=== PATIENT | male | born 1960 | race Two or more races ===

== ENCOUNTER 2024-06-05 16:00 | Inpatient (IN) | payer OTHER ==
[~2024-06-05] VITALS: Ht 182.9 cm; Wt 87.8 kg
--- NOTE | 2024-06-05 16:15 | ED.PDOC ---
History of Present Illness HPI Comments A 64 year old male brought in by EMS presents to the ED with a chief complaint of fever onset 1 week. Per EMS, patient has been experiencing fever for the past week, temporal temperature on scene was 105 F, upon ED arrival temperature was 101.1 F, blood glucose was 349. Patient states he has been experiencing increased fatigue and weakness. Has a past medical history of DM and HTN. Denies chest pain, shortness of breath, diarrhea, nausea, vomiting. No other symptoms or modifying factors present at this time. Chief Complaint: Fever Time Seen by MD: 16:03 Reviewed Notes: Medications, Allergies Information Source: Patient, Emergency Med Personnel Mode of Arrival: EMS Timing: Weeks Duration: Since onset Prehospital treatment: None Severity: Moderate Context: Recent: None History of: Diabetes Symptoms: Fever Associated Signs and Symptoms: Weakness Past Medical History PAST MEDICAL HISTORY: DM, HTN Surgical History: Unknown Family History Family History: Reviewed,noncontributory to illness, No family hx of Cancer, No family hx of DM, No family hx of Heart meme, No family hx of HTN, No family hx ofKidney meme, No family hx of Liver meme, No family hx of Lung meme, No family hx of Stroke Social History Smoker: Non-Smoker Alcohol: Denies ETOH Use Drugs: Denies Drug Use Lives In: Home Constitutional: Fatigue, Fever, Weakness EENTM: No Symptoms Reported Respiratory: No Symptoms Reported Cardiovascular: No Symptoms Reported Gastrointestinal: No Symptoms Reported Genitourinary: No Symptoms Reported Neurological: No Symptoms Reported Musculoskeletal: No Symptoms Reported Integumentary: No Symptoms Reported Allergic/Immunocompromised: others Hematologic/Lymphatic: No Symptoms Reported Endocrine: No Symptoms Reported Psychiatric: No symptoms Reported All Other Systems: Reviewed and Negative Physical Exam General Appearance: No Apparent Distress, Normal HEENT: Normal ENT Inspection, Pharynx Normal, TMs Normal Neck: Full Range of Motion, Non-Tender, Normal, Normal Inspection Respiratory: Chest Non-Tender, Lungs Clear, No Accessory Muscle Use, No Respiratory Distress, Normal Breath Sounds Cardiovascular: No Edema, No JVD, No Murmur, No Gallop, Normal Peripheral Pulses, Regular Rate/Rhythm Breast Exam: Deferred Gastrointestinal: No Organomegaly, Non Tender, No Pulsatile Mass, Normal Bowel Sounds, Soft Genitalia: Deferred Pelvic: Deferred Rectal: Deferred Extremities: No calf tenderness, Normal capillary refill, Normal inspection, Normal range of motion, Non-tender, No pedal edema Musculoskeletal : Apperance: Normal Neurologic: Alert, deputy sheriff chief II-XII nml as Tested, No Motor Deficits, Normal Affect, Normal Mood, No Sensory Deficits Cerebellar Function: Normal Reflexes: Normal Skin: Dry, Normal Color, Warm Lymphatic: No Adenopathy Was a procedure done? Was a procedure done?: No Fever Differential Dx Differential Diagnosis: Influenza, Pneumonia, Pyelonephritis, UTI, Viral Syndrome X-Ray, Labs, Meds, VS Vital Signs Date Time Temp Pulse Resp B/P (MAP) Pulse Ox O2 Delivery O2 Flow Rate FiO2 06/05/24 17:58 105 22 92 Room Air* 0 21 06/05/24 17:57 102.0 103 22 156/82 (106) 92 102.0 06/05/24 17:04 101.1 06/05/24 16:41 101.1 111 18 157/64 (95) 99 Lab Test 06/05/24 18:13 06/05/24 16:41 Range/Units Lactic Acid Level Pending 3.3 *H 0.4-2.0 mmol/L Troponin I High Sensitivity Pending 4 </=54 ng/L White Blood Count 9.8 4.4-10.8 10^3/uL Red Blood Count 5.19 4.5-5.90 10^6/uL Hemoglobin 15.8 13.5-17.5 g/dL Hematocrit 47.4 41.0-53.0 % Mean Corpuscular Volume 91.3 80.0-100.0 fL Mean Corpuscular Hemoglobin 30.5 28.0-32.0 pg Mean Corpuscular Hemoglobin Concent 33.4 32.0-36.0 g/dL Red Cell Distribution Width 13.6 11.8-14.3 % Platelet Count 81 L 140-450 10^3/uL Mean Platelet Volume 9.3 6.9-10.8 fL Neutrophils (%) (Auto) 37.0-80.0 % Lymphocytes (%) (Auto) 10.0-50.0 % Monocytes (%) (Auto) 0.0-12.0 % Basophils (%) (Auto) 0.0-2.0 % Neutrophils # (Auto) 1.6-8.6 10 ^3/uL Lymphocytes # (Auto) 0.4-5.4 10 ^3/uL Monocytes # (Auto) 0-1.3 10 ^3/uL Differential Total Cells Counted 100.0 100 Neutrophils % (Manual) 63 37.0-80.0 Band Neutrophils % (Manual) 18 Lymphocytes % (Manual) 6 L 10.0-50.0 Monocytes % (Manual) 10 0-12 Eosinophils % (Manual) 3 0-7 Basophils % (Manual) 0 0.0-2.0 Metamyelocytes % (manual) 0 Myelocytes % (Manual) 0 Promyelocytes % (Manual) 0 Blast Cells % (Manual) 0 Reactive Lymphocytes 0 Platelet Estimate Decreased Sodium Level 132 L 136-145 mmol/L Potassium Level 4.4 3.5-5.1 mmol/L Chloride Level 98 98-107 mmol/L Carbon Dioxide Level 21 20-31 mmol/L Anion Gap 13 5-15 Blood Urea Nitrogen 16 9-23 mg/dL Creatinine 0.92 0.700-1.30 mg/dL Glomerular Filtration Rate Calc 92 >90 mL/min BUN/Creatinine Ratio 17.4 10.0-20.0 Serum Glucose 370 H 74-106 mg/dL Calcium Level 9.3 8.7-10.4 mg/dL Total Bilirubin 0.8 0.2-1.0 mg/dL Aspartate Amino Transferase (AST) 84 H 13-40 U/L Alanine Aminotransferase (ALT) 129 H 7-40 U/L Alkaline Phosphatase 213 H 46-116 U/L Total Protein 6.6 5.7-8.2 g/dL Albumin 3.4 3.2-4.8 g/dL Current Medications Medications (Trade) Dose Ordered Sig/Radha Route Start Time Stop Time Status Last Admin Sodium Chloride 1,000 ml @ 1,000 mls/hr Q1H ONCE IV 06/05/24 16:15 06/05/24 17:14 DC 06/05/24 17:03 Ondansetron HCl (Zofran) 4 mg ONCE ONCE IV 06/05/24 16:15 06/05/24 16:16 DC 06/05/24 17:04 Cefepime HCl 50 ml @ 12.5 mls/hr ONCE ONCE IV 06/05/24 16:15 06/05/24 20:14 06/05/24 17:03 Acetaminophen (Tylenol Tablet) 650 mg ONCE ONCE PO 06/05/24 16:15 06/05/24 16:16 DC 06/05/24 17:04 [place] [id number] Ph: [phone] DIAGNOSTIC IMAGING Diagnostic Imaging Report : [id number] Signed PATIENT: JADE LOPEZ ACCT: [id number] UNIT: [id number] : 1960 LOC: ER ROOM / BED: / AGE / SEX: 64 / M ADM STATUS: REG ER SERVICE 38 ORDERING PHYSICIAN: KIARA HARDY MD PROCEDURE(s): CXRP - CHEST PORTABLE REASON: Fever, weakness ORDER NUMBER(s): [id number], ACCESSION NUMBER(s): [id number] EXAM: XY CHEST PORTABLE TECHNIQUE: Single frontal chest radiograph CLINICAL HISTORY: Fever, weakness COMPARISON: None Findings/Impression: Frontal chest radiograph demonstrates no acute osseous or superficial soft tissue abnormalities. The trachea is midline. The cardiac silhouette and mediastinum are within normal limits. No pneumothorax, pleural effusions, or consolidations. ATED BY: JENISE CERON DO DICTATED DATE/TIME: 06/05/241708 SIGNED BY: JENISE CERON DO SIGNED DATE/TIME: 06/05/241708 CC: Time of 1ST Reevaluation: 16:33 Reevaluation 1ST: Unchanged Patient Education/Counseling: Diagnosis, Treatment, Prognosis Family Education/Counseling: No Family Present Additional Information The following tests were ordered, and results were reviewed by me: CBC, CMP, LA W/REFLEX, TROP, TROP, TROP, UA, XY CHEST, BLOOD CULTURE I reviewed and agreed with the following test results read by other providers: XY CHEST Independent Historian: EMS I discussed treatment and results with medical personnel, patient Departure 1 Departure Time of Disposition: 19:09 (With infection of unclear source. We will empirically cover patient with antibiotics fluids antipyretics admit patient for further workup.) Impression: Primary Impression: Fever Qualified Codes: R50.9 - Fever, unspecified Additional Impressions: Weakness Metabolic encephalopathy Disposition: ADMITTED INPATIENT Admit to: Med Surg Condition: Serious Critical Care Note Critical Care Time?: Yes Critical care comment: Metabolic encephalopathy Authorized and Performed by: Kiara Hardy MD Total critical care time: Approximately 39 minutes Due to a high probability of clinically significant, life threatening deterioration, the patient required my highest level of preparedness to intervene emergently and I personally spent this critical care time directly and personally managing the patient. This critical care time included obtaining a history; examining the patient; pulse oximetry; ordering and review of studies; arranging urgent treatment with development of a management plan; evaluation of patient's response to treatment; frequent reassessment; and, discussions with other providers. This critical care time was performed to assess and manage the high probability of imminent, life-threatening deterioration that could result in multi-organ failure. It was exclusive of separately billable procedures and treating other patients and teaching time. Please see my other sections and the rest of the note for further information on patient assessment and treatment. Stability Stability form required: No I personally scribed for KIARA HARDY MD ([email or web address]) on 06/05/24 at 16:15. Electronically submitted by Shaneka Sandoval ([email or web address]). I personally scribed for KIARA HARDY MD ([email or web address]) on 06/05/24 at 16:15. Electronically submitted by Shaneka Sandoval ([email or web address]). I personally scribed for KIARA HARDY MD ([email or web address]) on 06/05/24 at 16:23. Electronically submitted by Shaneka Sandoval ([email or web address]). I personally scribed for KIARA HARDY MD ([email or web address]) on 06/05/24 at 16:54. Electronically submitted by Shaenka Sandoval ([email or web address]). I personally scribed for KIARA HARDY MD ([email or web address]) on 06/05/24 at 17:28. Electronically submitted by Shaneka Sandoval ([email or web address]). KIARA HARDY MD Jun 05, 2024 16:15
[2024-06-05] MEDS: CEFEPIME 2GM/50ML NS 50 ML IV ONE (17:03)
[2024-06-05] MEDS: SODIUM CHLORIDE 0.9% 1,000 ML IV ONE (17:03)
[2024-06-05] MEDS: ONDANSETRON HCL 4 MG/2 ML VIAL IV ONE (17:04)
[2024-06-05] MEDS: ACETAMINOPHEN 325 MG TAB PO ONE (17:04)
--- NOTE | 2024-06-05 17:11 | DVH ---
EXAM: XY CHEST PORTABLE TECHNIQUE: Single frontal chest radiograph CLINICAL HISTORY: Fever, weakness COMPARISON: None Findings/Impression: Frontal chest radiograph demonstrates no acute osseous or superficial soft tissue abnormalities. The trachea is midline. The cardiac silhouette and mediastinum are within normal limits. No pneumothorax, pleural effusions, or consolidations.
[2024-06-05 17:14] LABS: Albumin 3.4 g/dL (3.2-4.8); Anion Gap 13 (5-15); BUN/Creatinine Ratio 17.4 (10.0-20.0); Blood Urea Nitrogen 16 mg/dL (9-23); Calcium 9.3 mg/dL (8.7-10.4); Carbon Dioxide 21 mmol/L (20-31); Chloride 98 mmol/L (98-107); Potassium 4.4 mmol/L (3.5-5.1)
[2024-06-05 17:15] LABS: Bilirubin, Total 0.8 mg/dL (0.2-1.0); Total Protein 6.6 g/dL (5.7-8.2)
[2024-06-05 17:47] LABS: Alanine Aminotransferase 129 U/L (7-40); Alkaline Phosphatase 213 U/L (46-116); Aspartate Aminotransferase 84 U/L (13-40); Glucose 370 mg/dL (74-106); Sodium 132 mmol/L (136-145)
[2024-06-05 17:52] LABS: Hematocrit 47.4 % (41.0-53.0); Hemoglobin 15.8 g/dL (13.5-17.5); Mean Corpuscular Hemoglobin 30.5 pg (28.0-32.0); Mean Corpuscular Hgb Conc. 33.4 g/dL (32.0-36.0); Mean Corpuscular Volume 91.3 fL (80.0-100.0); Platelet Count (auto) 81 10^3/uL (140-450); Red Blood Cells 5.19 10^6/uL (4.5-5.90); Red Cell Distribution Width 13.6 % (11.8-14.3); White Blood Cell 9.8 10^3/uL (4.4-10.8)
[2024-06-05 17:56] LABS: Basophils % (manual) 0 (0.0-2.0); Blast Cells 0; Metamyelocytes % 0; Myelocytes % 0; Promyelocytes % 0; Reactive Lymphocytes 0
[2024-06-05 17:57] LABS: Lactic Acid w/Reflex 3.3 mmol/L (0.4-2.0)
[2024-06-05 17:58] VITALS: PULSE 105; RESP 22; O2SAT 92
[2024-06-05 18:17] LABS: Band Neutrophils % (manual) 18; Eosinophils % (manual) 3 (0-7); Lymphocytes % (manual) 6 (10.0-50.0); Monocytes % (manual) 10 (0-12); Platelet Estimate Decreased
[2024-06-05] MEDS ORDERED: DOCUSATE SOD 100 MG CAP PO PRN (19:45)
[2024-06-05] MEDS ORDERED: DEXTROSE (50%) 50ML SYRG IV PRN (19:45)
[2024-06-05] MEDS ORDERED: hydrALAZINE HCL 20 MG/ML VL IV PRN (19:45)
[2024-06-05] MEDS ORDERED: ONDANSETRON HCL 4 MG/2 ML VIAL IV PRN (19:45)
[2024-06-05 20:00] VITALS: PULSE 102; RESP 21; O2SAT 94
[2024-06-05] MEDS: ACCU-CHEK COMFORT CURVE STRIP VI SCH (20:45)
[2024-06-05] MEDS: SODIUM CHLORIDE 0.9% 1,000 ML IV SCH (21:00)
[2024-06-05] MEDS: PIPERACILLIN-TAZOB 3.375GM 100 ML IV SCH (22:00)
--- NOTE | 2024-06-05 22:19 | DVHHP2 ---
History of Present Illness Reason for Visit: Fever, unspecified History of Present Illness The patient is a 64-year-old male with past medical history of diabetes mellitus and hypertension who presented to [facility] ED with complaint of fever. Patient reports symptoms progressively get worse with weakness, increased fatigue, getting worse that prompted this visit. Patient was seen and evaluated in the ED, laboratory data shows WBC 9.8, platelets 99756, sodium 132, potassium 4.4, BUN 16, creatinine 0.92, GFR 92, lactic acid 2.6, AST 84, ALT 129, troponin four, blood pressure 157/64, heart rate 102, temperature 102.0 F, O2 saturation 92% on oxygen. Patient was started on IV antibiotic regimen Zosyn, Tylenol 650 mg p.o. x1, please see medication orders section in the computer. On my assessment, patient denied chest pain, no headache, no dizziness, no diaphoresis, currently on oxygen, no diarrhea, no nausea, no vomiting, no fever, no chills. No other modifying factor or other associated signs and symptoms noted. The patient was admitted to the hospital for further evaluation and medical management. Past Medical History DM, HTN Past Surgical History No past surgical history on file Family History Reviewed, noncontributory to the management of this case. Past Social History The patient lives at home, denies smoking, alcohol or illicit drugs abuse. Review of Systems Constitutional: Yes: Weakness, Other (Fatigue); No: Fever, Chills, Sweats, Malaise Eyes: No: Pain, Vision change, Conjunctivae inflammation, Eyelid inflammation, Other, Redness ENT: No: Ear pain, Ear discharge, Nose pain, Nose discharge, Nose congestion, Mouth pain, Mouth swelling, Throat pain, Throat swelling, Other Respiratory: No: Cough, Dry, Shortness of breath, SOB with excertion, Wheezing, Hemoptysis, Pleuritic Pain, Sputum, Wheezing, Other Cardiovascular: No: Chest Pain, Palpitations, Orthopnea, Paroxysmal Noc. Dyspnea, Edema, Lt Headedness, Other Gastrointestinal: No: Nausea, Vomiting, Abdominal Pain, Diarrhea, Constipation, Melena, Hematochezia, Other Genitourinary: No Dysuria, No Frequency, No Incontinence, No Hematuria, No Retention, No Other Musculoskeletal: No: other, neck pain, shoulder pain, arm pain, back pain, hand pain, leg pain, foot pain Skin: No: Rash, Lesions, Jaundice, Bruising, Other Neurological: No: Weakness, Numbness, Incoordination, Change in speech, Confusion, Seizures, Other Allergies: Coded Allergies: NO KNOWN ALLERGIES (Unverified , 06/05/24) Medications Current Medications Medications Dose Ordered Sig/Radha Route Start Time Stop Time Status Last Admin Dose Admin Piperacillin Sod/ Tazobactam Sod 100 ml @ 25 mls/hr Q8HR IV 06/05/24 22:00 Ibuprofen 600 mg Q6HP PRN PO 06/05/24 19:45 Diagnostic Test (Pha) 1 strip IQ4HR 06/05/24 20:00 Insulin Human Regular IQ4HR SC 06/05/24 20:00 Dextrose 50 ml UD PRN IV 06/05/24 19:45 Sodium Chloride 1,000 ml @ 60 mls/hr [id number] IV 06/05/24 19:45 Acetaminophen/ Hydrocodone Bitart 1 tab Q4HP PRN PO 06/05/24 19:45 Ondansetron HCl 4 mg Q4HP PRN IV 06/05/24 19:45 Docusate Sodium 100 mg BIDPRN PRN PO 06/05/24 19:45 Hydralazine HCl 10 mg Q6HP PRN IV 06/05/24 19:45 Exam Vital Signs Vital Signs Date Time Temp Pulse Resp B/P (MAP) Pulse Ox O2 Delivery O2 Flow Rate FiO2 06/05/24 19:52 102 21 108/65 (79) 94 06/05/24 17:58 Room Air* 0 21 06/05/24 17:57 102.0 102.0 General Appearance: Alert, Oriented X3, Cooperative, No acute distress HEENT: Atraumatic, PERRLA, EOMI, Mucous membr. moist/pink Respiratory: Clear to auscultation, Normal air movement Cardiovascular: Regular rate, Normal S1, Normal S2, No murmurs Abdominal: Normal bowel sounds, Soft, No tenderness, No hepatospenomegaly, No masses Extremities: No clubbing, No cyanosis, No edema, Normal pulses, No tenderness/swelling Skin: No rashes, No breakdown, No significant lesion Neuro: Normal speech, Normal tone, Sensation intact, Cranial nerves 3-12 NL, Reflexes 2+, Other (Generalized weakness) Psych/Mental Status: Mental status NL, Mood NL Labs/Xrays Labs Test 06/05/24 18:13 06/05/24 16:41 Range/Units Lactic Acid Level 2.6 *H 0.4-2.0 mmol/L Troponin I High Sensitivity 3 L </=54 ng/L White Blood Count 9.8 4.4-10.8 10^3/uL Red Blood Count 5.19 4.5-5.90 10^6/uL Hemoglobin 15.8 13.5-17.5 g/dL Hematocrit 47.4 41.0-53.0 % Mean Corpuscular Volume 91.3 80.0-100.0 fL Mean Corpuscular Hemoglobin 30.5 28.0-32.0 pg Mean Corpuscular Hemoglobin Concent 33.4 32.0-36.0 g/dL Red Cell Distribution Width 13.6 11.8-14.3 % Platelet Count 81 L 140-450 10^3/uL Mean Platelet Volume 9.3 6.9-10.8 fL Neutrophils (%) (Auto) 37.0-80.0 % Lymphocytes (%) (Auto) 10.0-50.0 % Monocytes (%) (Auto) 0.0-12.0 % Basophils (%) (Auto) 0.0-2.0 % Neutrophils # (Auto) 1.6-8.6 10 ^3/uL Lymphocytes # (Auto) 0.4-5.4 10 ^3/uL Monocytes # (Auto) 0-1.3 10 ^3/uL Differential Total Cells Counted 100.0 100 Neutrophils % (Manual) 63 37.0-80.0 Band Neutrophils % (Manual) 18 Lymphocytes % (Manual) 6 L 10.0-50.0 Monocytes % (Manual) 10 0-12 Eosinophils % (Manual) 3 0-7 Basophils % (Manual) 0 0.0-2.0 Metamyelocytes % (manual) 0 Myelocytes % (Manual) 0 Promyelocytes % (Manual) 0 Blast Cells % (Manual) 0 Reactive Lymphocytes 0 Platelet Estimate Decreased Sodium Level 132 L 136-145 mmol/L Potassium Level 4.4 3.5-5.1 mmol/L Chloride Level 98 98-107 mmol/L Carbon Dioxide Level 21 20-31 mmol/L Anion Gap 13 5-15 Blood Urea Nitrogen 16 9-23 mg/dL Creatinine 0.92 0.700-1.30 mg/dL Glomerular Filtration Rate Calc 92 >90 mL/min BUN/Creatinine Ratio 17.4 10.0-20.0 Serum Glucose 370 H 74-106 mg/dL Calcium Level 9.3 8.7-10.4 mg/dL Total Bilirubin 0.8 0.2-1.0 mg/dL Aspartate Amino Transferase (AST) 84 H 13-40 U/L Alanine Aminotransferase (ALT) 129 H 7-40 U/L Alkaline Phosphatase 213 H 46-116 U/L Total Protein 6.6 5.7-8.2 g/dL Albumin 3.4 3.2-4.8 g/dL PATIENT: JADE LOPEZ ACCT: [id number] UNIT: [id number] : 1960 LOC: ER ROOM / BED: / AGE / SEX: 64 / M ADM STATUS: REG ER SERVICE [id number] ORDERING PHYSICIAN: KIARA HARDY MD PROCEDURE(s): CXRP - CHEST PORTABLE REASON: Fever, weakness ORDER NUMBER(s): [id number], ACCESSION NUMBER(s): [id number] EXAM: XY CHEST PORTABLE TECHNIQUE: Single frontal chest radiograph CLINICAL HISTORY: Fever, weakness COMPARISON: None Findings/Impression: Frontal chest radiograph demonstrates no acute osseous or superficial soft tissue abnormalities. The trachea is midline. The cardiac silhouette and mediastinum are within normal limits. No pneumothorax, pleural effusions, or consolidations. Assessment/Plan Assessment/Plan Fever, unspecified Generalized weakness Thrombocytopenia Elevated liver enzymes Metabolic encephalopathy Diabetes mellitus with hyperglycemia Plan 1. Admit to telemetry unit 2. Breathing treatment 3. Pain control management 4. IV antibiotic management 5. Management of fluids and electrolytes 6. Consultation for hospitalist 7. Diagnostic test chest x-ray 8. DVT prophylaxis-on SCDs 9. Repeat labs CBC, CMP in a.m. 10. Home medication reviewed and reconciled 11. Continue with current medical management 12. Treatment plan discussed with patient and RN. Patient verbalized understanding. Plan discussed with: Patient, Other (RN) My Orders Orders - JESS RAMON DNP Procedure Category Date Status Time Piperacillin-Tazob PHA 06/05/24 In Process 3.375gm (Zosyn 3.375g 22:00 Consistent DIET 06/06/24 Transmitted Carb(Ccho)Diabetes Breakfast Ibuprofen Tablet PHA 06/05/24 In Process (Motrin Tablet) 19:45 Glucose Blood PHA 06/05/24 In Process (Accu-Chek Comfort 20:00 Insulin R (Human) PHA 06/05/24 In Process (Insulin R) 20:00 Dextrose 50% Syringe PHA 06/05/24 In Process 19:45 Allergies PATSY 06/05/24 In Process 19:35 Code Status CODE 06/05/24 Transmitted 19:35 Sodium Chloride 0.9% PHA 06/05/24 In Process 19:45 Oxygen Per Hour RT 06/05/24 Transmitted 19:35 Hydrocodone-Acet PHA 06/05/24 In Process 5/325mg Tab ([place] 19:45 Ondansetron Hcl PHA 06/05/24 In Process (Zofran) 19:45 Docusate Sodium PHA 06/05/24 In Process Capsule (Colace 19:45 Complete Blood Count LAB 06/06/24 Verified 04:00 Comprehensive LAB 06/06/24 Verified Metabolic Panel 04:00 Condition: Serious PATSY 06/05/24 In Process 19:35 Bedrest With Bathroom PATSY 06/05/24 In Process Privileg 19:35 Sequential PATSY 06/05/24 In Process Compression Device Hydralazine Injection PHA 06/05/24 In Process (Apresoline Inject 19:45 Lactic Acid W/ Reflex LAB 06/06/24 Verified Order 02:00 Admit ADMIT 06/05/24 Verified 22:17 Nitroglycerin [facility] 06/05/24 Verified Sublingual (Ntrostat 22:30 Morphine Sulfate PHA 06/05/24 Verified Injection 22:30 Notify Of Changes [facility] 06/05/24 Verified From Base 22:17 Salesman/Owner For [facility] 06/05/24 Verified 24 Hours 22:17 Emergency Dysrhythmia [facility] 06/05/24 Verified Protocol 22:17 Rhythm Strips Once [facility] 06/05/24 Verified Every Shift 22:17 Oxygen By Nasal RT 06/05/24 Verified Cannula 22:17 Problem List: (1) Fever, unspecified (2) Elevated liver enzymes (3) Metabolic encephalopathy (4) Thrombocytopenia (5) Generalized weakness (6) Diabetes mellitus with hyperglycemia Date of Service: Jun 05, 2024 Billing Provider: JESS RAMON DNP Common Visit Codes: 23549-ZOWHJBV INP/OBS CARE (HIGH) JESS RAMON DNP Jun 05, 2024 22:18
[2024-06-05] MEDS ORDERED: MORPHINE SULFATE INJ 2 MG/ml SYRG IV PRN (22:30)
[2024-06-05] MEDS ORDERED: NITROGLYCERIN 0.4 MG SL TAB SL PRN (22:30)
[2024-06-05] MEDS: VANCOMYCIN 1GM/250ML KIT 200 ML IV ONE (23:32)
[2024-06-05 23:35] LABS: Urine Bacteria None Seen /hpf (None Seen)
[2024-06-05 23:49] LABS: Urine Blood TRACE /uL (Negative); Urine Clarity Clear (Clear); Urine Color Light-Yellow (Yellow); Urine Protein, UAD TRACE (Negative); Urine Specific Gravity 1.032 (1.001-1.035); Urine Urobilinogen Normal (Negative); Urine WBC 1 /hpf (0 - 3); Urine pH 5.5 (5.0-9.0)
[2024-06-05] MEDS: InsuLIN REG 1unit/0.01ml Soln (100units/ml) SC SCH (23:49)
[2024-06-06 00:03] LABS: COVID19 ANTIGEN SOFIA FIA NEGATIVE (NEGATIVE)
[2024-06-06 00:04] LABS: Rapid Influenza A Negative (Negative); Rapid Influenza B Negative (Negative)
[2024-06-06] MEDS: HYDROcodone-ACET 5/325MG TAB PO PRN (00:36)
[2024-06-06 02:07] LABS: Hemoglobin 13.5 g/dL (13.5-17.5); White Blood Cell 11.2 10^3/uL (4.4-10.8)
[2024-06-06 02:08] LABS: Hematocrit 39.5 % (41.0-53.0); Mean Corpuscular Hemoglobin 30.2 pg (28.0-32.0); Mean Corpuscular Hgb Conc. 34.1 g/dL (32.0-36.0); Mean Corpuscular Volume 88.5 fL (80.0-100.0); Red Blood Cells 4.47 10^6/uL (4.5-5.90); Red Cell Distribution Width 13.3 % (11.8-14.3)
[2024-06-06 02:22] LABS: Platelet Count (auto) 60 10^3/uL (140-450)
[2024-06-06 02:23] LABS: Basophils % (manual) 0 (0.0-2.0); Blast Cells 0; Eosinophils % (manual) 0 (0-7); Metamyelocytes % 0; Promyelocytes % 0; Reactive Lymphocytes 0
[2024-06-06 02:24] LABS: Anion Gap 8 (5-15); Blood Urea Nitrogen 18 mg/dL (9-23); Carbon Dioxide 23 mmol/L (20-31); Chloride 100 mmol/L (98-107); Potassium 3.7 mmol/L (3.5-5.1)
[2024-06-06 02:25] LABS: Bilirubin, Total 0.7 mg/dL (0.2-1.0)
[2024-06-06 02:26] LABS: Alanine Aminotransferase 112 U/L (7-40); Albumin 2.9 g/dL (3.2-4.8); Alkaline Phosphatase 188 U/L (46-116); Aspartate Aminotransferase 101 U/L (13-40); Calcium 8.1 mg/dL (8.7-10.4); Glucose 357 mg/dL (74-106); Sodium 131 mmol/L (136-145); Total Protein 5.4 g/dL (5.7-8.2)
[2024-06-06 02:59] LABS: Band Neutrophils % (manual) 32; Lymphocytes % (manual) 9 (10.0-50.0); Monocytes % (manual) 4 (0-12); Myelocytes % 1
[2024-06-06] MEDS: IBUPROFEN 600 MG TAB PO PRN (03:23)
[2024-06-06 03:50] LABS: Platelet Estimate Markedly Decreased
[2024-06-06 05:07] VITALS: PULSE 93; RESP 18; O2SAT 97
[2024-06-06 09:00] VITALS: PULSE 64; RESP 12; O2SAT 98
[2024-06-06] MEDS: INSULIN LANTUS (GLARGINE) 1 /0.01ml (100units/ml) SC SCH ×2 (12:12→22:04)
[2024-06-06] MEDS ORDERED: VANCOMYCIN 1GM/250ML KIT 250 ML IV ONE (16:00)
[2024-06-06] MEDS ORDERED: VANCOMYCIN PER PHARMACY 0 MG IV SCH (16:00)
--- NOTE | 2024-06-06 16:00 | DVHPN2 ---
Subjective 64 year old male DM2, HTN, h/o remote left hip infection 40 years ago, left hip is fused now, came for fever and chills He has Temp: 100.1 Blood Cx + x 2 Changes from previous H/P or p: Changes General: Chills Eyes: No Pain, No Vision change, No Conjunctivae inflammation, No Eyelid inflammation, No Other, No Redness ENT: No Ear pain, No Ear discharge, No Nose pain, No Nose discharge, No Nose congestion, No Mouth pain, No Mouth swelling, No Throat pain, No Throat swelling, No Other Cardiovascular: No Chest Pain, No Palpitations, No Orthopnea, No Paroxysmal Noc. Dyspnea, No Edema, No Lt Headedness, No Other Respiratory: No Cough, No Dry, No Shortness of breath, No SOB with excertion, No Wheezing, No Hemoptysis, No Pleuritic Pain, No Sputum, No Other Gastrointestinal: No Nausea, No Vomiting, No Abdominal Pain, No Diarrhea, No Constipation, No Melena, No Hematochezia, No Other Genitourinary: No Dysuria, No Frequency, No Incontinence, No Hematuria, No Retention, No Other Musculoskeletal: No other, No neck pain, No shoulder pain, No arm pain, No back pain, No hand pain, No leg pain, No foot pain Skin: No Rash, No Lesions, No Jaundice, No Bruising, No Other Objective Vitals Vital Signs Date Time Temp Pulse Resp B/P (MAP) Pulse Ox O2 Delivery O2 Flow Rate FiO2 06/06/24 05:11 100.0 91 18 116/62 (80) 98 100.0 06/06/24 05:07 Nasal Cannula* 1 24 Intake/Output Intake and Output 06/06/24 07:00 Intake Total 180 ml Balance 180 ml Intake IV Total 180 ml General Appearance: Alert, Oriented X3, Cooperative, No acute distress Lungs: Clear to auscultation, Normal air movement Cardiovascular: Regular rate, Normal S1, Normal S2 Abdomen: Normal bowel sounds, Soft, No tenderness Extremities: No edema Medications Current Medications Medications Dose Ordered Sig/Radha Route Start Time Stop Time Status Last Admin Dose Admin Piperacillin Sod/ Tazobactam Sod 100 ml @ 25 mls/hr Q8HR IV 06/05/24 22:00 06/06/24 06:26 25 MLS/HR Ibuprofen 600 mg Q6HP PRN PO 06/05/24 19:45 06/06/24 03:23 600 MG Diagnostic Test (Pha) 1 strip IQ4HR 06/05/24 20:00 06/06/24 12:06 1 STRIP Insulin Human Regular IQ4HR SC 06/05/24 20:00 06/06/24 12:18 15 UNITS Dextrose 50 ml UD PRN IV 06/05/24 19:45 Sodium Chloride 1,000 ml @ 60 mls/hr [id number] IV 06/05/24 19:45 06/05/24 21:00 60 MLS/HR Acetaminophen/ Hydrocodone Bitart 1 tab Q4HP PRN PO 06/05/24 19:45 06/06/24 00:36 1 TAB Ondansetron HCl 4 mg Q4HP PRN IV 06/05/24 19:45 Docusate Sodium 100 mg BIDPRN PRN PO 06/05/24 19:45 Hydralazine HCl 10 mg Q6HP PRN IV 06/05/24 19:45 Nitroglycerin 0.4 mg Q5MINP PRN SL 06/05/24 22:30 Morphine Sulfate 2 mg Q30M PRN IV 06/05/24 22:30 Insulin Glargine BID@1000,2200 SC 06/06/24 10:00 Laboratory Results Laboratory Tests 06/06/24 01:57 Chemistry Test 06/05/24 16:41 06/06/24 01:57 Albumin 3.4 g/dL (3.2-4.8) 2.9 g/dL (3.2-4.8) L Calcium Level 9.3 mg/dL (8.7-10.4) 8.1 mg/dL (8.7-10.4) L Total Protein 6.6 g/dL (5.7-8.2) 5.4 g/dL (5.7-8.2) L LFT Test 06/05/24 16:41 06/06/24 01:57 Alanine Aminotransferase (ALT) 129 U/L (7-40) H 112 U/L (7-40) H Alkaline Phosphatase 213 U/L (46-116) H 188 U/L (46-116) H Aspartate Amino Transferase (AST) 84 U/L (13-40) H 101 U/L (13-40) H Total Bilirubin 0.8 mg/dL (0.2-1.0) 0.7 mg/dL (0.2-1.0) Urinalysis Test 06/05/24 22:13 Urine Color Light-yellow (Yellow) Urine Clarity Clear (Clear) Urine pH 5.5 (5.0-9.0) Urine Specific [place] 1.032 (1.001-1.035) Urine Protein Trace (Negative) H Urine Ketones 2+ (Negative) H Urine Blood Trace /uL (Negative) H Urine Nitrite Negative (Negative) Urine Bilirubin Negative (Negative) Urine Urobilinogen Normal mg/dL (Negative) Urine Leukocyte Esterase Negative /uL (Negative) Urine RBC 3 /hpf (0 - 3) Urine WBC 1 /hpf (0 - 3) Urine Squamous Epithelial Cells None seen /hpf (<5) Urine Bacteria None seen /hpf (None Seen) Urine Glucose 4+ mg/dL (Normal) H Microbiology Microbiology Date/Time Source Procedure Growth Status 06/05/24 16:41 Blood Blood Culture - Preliminary Resulted Assessment/Plan Assessment/Plan Fever Bacteremia G+ cocci in clusters Sepsis Uncontrolled DM, insulin dependent Elevated liver function Thrombocytopenia due to sepsis Protein malnutrition HTN Left hip pain, 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
--- NOTE | 2024-06-06 16:45 | DVH ---
Exam: CT CT L HIP WITH OUT CONTRAST, CT CT AB PEL WO CON-NO ORAL OR IV History: fever Comparison Study: None available TECHNIQUE: Multidetector CT of the abdomen and pelvis was performed from lung bases to pubic symphysi s. Imaging was performed without IV contrast. Axial, coronal, and sagittal multiplanar reformats were obtained from the axial data set by the technologist. RADIATION DOSE: DLP 692.97 mGy.cm; CTDI vol 11.[address]: CTDI volume is 11.62 mGy. Dose-length product is 390.72 mGy*cm Findings: Limited evaluation given noncontrast technique. Lungs: Intralobular septal thickening. Heart: The visualized heart is unremarkable. No cardiomegaly or pericardial effusion. Liver: Unremarkable. Gallbladder: Contracted gallbladder, but otherwise unremarkable. Spleen: Unremarkable Pancreas: Unremarkable Adrenals: Unremarkable Kidneys: Unremarkable GI tract: Unremarkable : The urinary bladder is decompressed via Leon catheter. Vasculature: Unremarkable Lymphadenopathy: Absent Peritoneum: No ascites Musculoskeletal: Mild to moderate multilevel degenerative changes of the thoracolumbar spine. Heterot opic ossification of the left femoral head with fusion to the acetabulum. Soft tissues: Unremarkable Impression: 1. No acute abdominopelvic abnormalities. 2. Contracted gallbladder. 3. Intralobular septal thickening. May be due to interstitial pneumonia versus pulmonary edema. 4. Marked degenerative changes of the left hip with femoroacetabular fusion.
--- NOTE | 2024-06-06 17:20 | DVHSR ---
APPROVED REPORT EXAM: Two-dimensional and M-mode echocardiogram with Doppler and color Doppler. Blood Pressure: 116/62 mmHg INDICATION Bacteremia RISK FACTORS Height: 6'0", Weight: 180 DIMENSIONS LVDd4.6 (3.8-5.7cm)LA (2D)3.8 (1.9-4.0cm)Aortic Root3.5 (2.0-3.7cm) LVDs3.1 (2.5-4.0cm)LA (MM) (1.9-4.0cm)Aortic Cusp Exc1.8 (1.5-2.0cm) EF (%) 62.0 (55-70%)Rt. Atrium3.5 (1.9-4.0cm)Asc. Aorta cm IVSd1.2 (0.7-1.1cm)RV (D) (1.8-2.4cm) PWd1.2 (0.7-1.1cm) Mitral Valve MitralMitral Stenosis E wave1.25m/sMV Mean GR.mmHg A wave0.85m/sMV Peak GR.mmHg E/A ratio1.52D MVAcm2 DECEL [id number] 1/2 Timems Aortic Valve Aortic ValveAortic Stenosis V11.16m/Butch Mean GR.4mmHg V21.28m/Butch Peak GR.7mmHg LVOT Diameter2.0 (1.8-2.4cm)Doppler AVA2.85cm2 Pulmonic Valve V21.03m/s Other Information Technically limited study due to body habitus, patient lying flat. Conclusion LV EJECTION FRACTION IS 65 % NORMAL VALVES NO EFFUSION NORMAL RV FUNCTION
[2024-06-06] MEDS: INSULIN LANTUS (GLARGINE) 1 /0.01ml (100units/ml) SC ONE (17:41)
[2024-06-06] MEDS: ACCU-CHEK COMFORT CURVE STRIP VI SCH (17:43)
[2024-06-06] MEDS: InsuLIN REG 1unit/0.01ml Soln (100units/ml) SC SCH (17:43)
[2024-06-06 19:00] VITALS: BP 115/64; PULSE 88; RESP 18; TEMP 99.4; O2SAT 90
[2024-06-06] MEDS: VANCOMYCIN 1.25GM/250ML 250 ML IV SCH (20:20)
[2024-06-06] MEDS: ACETAMINOPHEN 325 MG TAB PO PRN (20:58)
[2024-06-06 21:00] VITALS: BP 114/65; PULSE 89; RESP 18; TEMP 100.4; O2SAT 91
[2024-06-06] MEDS ORDERED: METH-1181 PO (23:07)
[2024-06-06] MEDS ORDERED: NAP500T PO (23:07)
[2024-06-06] MEDS ORDERED: METH-1214 PO (23:07)
[2024-06-06] MEDS ORDERED: LISI40TA16 PO (23:09)
[2024-06-06] MEDS ORDERED: SEMA2INJ3 SC (23:09)
[2024-06-06] MEDS ORDERED: BUPR-60 PO (23:09)
[2024-06-07] VITALS (8 sets, daily range): BP systolic 112–131; BP diastolic 63–71; PULSE 78–94; RESP 16–20; TEMP 97.9–101.4; O2SAT 91–94
[2024-06-07 07:36] LABS: Anion Gap 6 (5-15); Blood Urea Nitrogen 16 mg/dL (9-23); Carbon Dioxide 25 mmol/L (20-31); Chloride 104 mmol/L (98-107); Cholesterol 74 mg/dL (< 200); LDL Cholesterol 20 mg/dL (< 100); Magnesium 2.1 mg/dL (1.6-2.6)
[2024-06-07 07:37] LABS: Bilirubin, Total 0.7 mg/dL (0.2-1.0); Hemoglobin 13.1 g/dL (13.5-17.5); Mean Corpuscular Volume 88.8 fL (80.0-100.0); White Blood Cell 13.5 10^3/uL (4.4-10.8)
[2024-06-07 07:38] LABS: Hematocrit 38.5 % (41.0-53.0); Mean Corpuscular Hemoglobin 30.3 pg (28.0-32.0); Mean Corpuscular Hgb Conc. 34.1 g/dL (32.0-36.0); Platelet Count (auto) 53 10^3/uL (140-450); Red Blood Cells 4.34 10^6/uL (4.5-5.90); Red Cell Distribution Width 13.5 % (11.8-14.3)
[2024-06-07 07:39] LABS: Alanine Aminotransferase 91 U/L (7-40); Albumin 2.4 g/dL (3.2-4.8); Alkaline Phosphatase 160 U/L (46-116); Aspartate Aminotransferase 117 U/L (13-40); Calcium 7.8 mg/dL (8.7-10.4); Glucose 222 mg/dL (74-106); HDL Cholesterol < 5 mg/dL (40-59); Potassium 3.5 mmol/L (3.5-5.1); Sodium 135 mmol/L (136-145); Total Protein 5.1 g/dL (5.7-8.2); Triglycerides 199 mg/dL (< 150)
[2024-06-07 07:40] LABS: INR 1.08 (0.9-1.15); Partial Thromboplastin Time 29.1 SEC (24.5-34.5); Prothrombin Time 11.4 sec (9.3-11.8)
[2024-06-07 07:43] LABS: Basophils % (manual) 0 (0.0-2.0); Blast Cells 0; Metamyelocytes % 0; Myelocytes % 0; Promyelocytes % 0; Reactive Lymphocytes 0
[2024-06-07 09:23] LABS: Hepatitis A Ab IgM Negative; Hepatitis B Core IgM Negative (Negative); Hepatitis B Surface Antigen Negative (Negative); Hepatitis C Antibody Negative (Negative)
[2024-06-07 12:37] LABS: Band Neutrophils % (manual) 9; Eosinophils % (manual) 1 (0-7); Lymphocytes % (manual) 10 (10.0-50.0); Monocytes % (manual) 7 (0-12); Platelet Estimate Decreased
--- NOTE | 2024-06-07 16:51 | DVHPN2 ---
Subjective Still c/o fever and pain in left hip Changes from previous H/P or p: Changes General: Chills Eyes: No Pain, No Vision change, No Conjunctivae inflammation, No Eyelid inflammation, No Other, No Redness ENT: No Ear pain, No Ear discharge, No Nose pain, No Nose discharge, No Nose congestion, No Mouth pain, No Mouth swelling, No Throat pain, No Throat swelling, No Other Cardiovascular: No Chest Pain, No Palpitations, No Orthopnea, No Paroxysmal Noc. Dyspnea, No Edema, No Lt Headedness, No Other Respiratory: No Cough, No Dry, No Shortness of breath, No SOB with excertion, No Wheezing, No Hemoptysis, No Pleuritic Pain, No Sputum, No Other Gastrointestinal: No Nausea, No Vomiting, No Abdominal Pain, No Diarrhea, No Constipation, No Melena, No Hematochezia, No Other Genitourinary: No Dysuria, No Frequency, No Incontinence, No Hematuria, No Retention, No Other Musculoskeletal: No other, No neck pain, No shoulder pain, No arm pain, No back pain, No hand pain, No leg pain, No foot pain Skin: No Rash, No Lesions, No Jaundice, No Bruising, No Other Objective Vitals Vital Signs Date Time Temp Pulse Resp B/P (MAP) Pulse Ox O2 Delivery O2 Flow Rate FiO2 06/07/24 12:36 98.1 79 18 112/63 (79) 93 98.1 06/07/24 08:00 Nasal Cannula* 2 28 Intake/Output Intake and Output 06/07/24 07:00 Intake Total 800 ml Output Total 2100 ml Balance -1300 ml Intake Oral 700 ml IV Total 100 ml Output Urine Total 2100 ml General Appearance: Alert, Oriented X3, Cooperative, No acute distress Lungs: Clear to auscultation, Normal air movement Cardiovascular: Regular rate, Normal S1, Normal S2 Abdomen: Normal bowel sounds, Soft, No tenderness Extremities: No edema Medications Current Medications Medications Dose Ordered Sig/Radha Route Start Time Stop Time Status Last Admin Dose Admin Piperacillin Sod/ Tazobactam Sod 100 ml @ 25 mls/hr Q8HR IV 06/05/24 22:00 06/07/24 15:53 25 MLS/HR Dextrose 50 ml UD PRN IV 06/05/24 19:45 Sodium Chloride 1,000 ml @ 60 mls/hr [id number] IV 06/05/24 19:45 06/05/24 21:00 60 MLS/HR Acetaminophen/ Hydrocodone Bitart 1 tab Q4HP PRN PO 06/05/24 19:45 06/07/24 16:05 1 TAB Ondansetron HCl 4 mg Q4HP PRN IV 06/05/24 19:45 Docusate Sodium 100 mg BIDPRN PRN PO 06/05/24 19:45 Hydralazine HCl 10 mg Q6HP PRN IV 06/05/24 19:45 Nitroglycerin 0.4 mg Q5MINP PRN SL 06/05/24 22:30 Morphine Sulfate 2 mg Q30M PRN IV 06/05/24 22:30 Insulin Glargine 20 units BID@1000,2200 SC 06/06/24 22:00 06/07/24 10:40 20 UNITS Vancomycin HCl 0 ml @ 0 mls/hr UD IV 06/06/24 16:00 Diagnostic Test (Pha) 1 strip ACHS 06/06/24 17:00 06/07/24 10:31 1 STRIP Insulin Human Regular ACHS SC 06/06/24 17:00 06/07/24 10:41 9 UNITS Acetaminophen 650 mg Q6HP PRN PO 06/06/24 16:00 06/07/24 05:06 650 MG Vancomycin HCl 250 ml @ 200 mls/hr Q18H IV 06/06/24 18:00 06/07/24 11:26 200 MLS/HR Laboratory Results Laboratory Tests 06/07/24 06:07 Chemistry Test 06/07/24 06:07 Albumin 2.4 g/dL (3.2-4.8) L Calcium Level 7.8 mg/dL (8.7-10.4) L Magnesium Level 2.1 mg/dL (1.6-2.6) Total Protein 5.1 g/dL (5.7-8.2) L Coagulation Test 06/07/24 06:07 Prothrombin Time 11.4 sec (9.3-11.8) Prothrombin Time INR 1.08 (0.9-1.15) Activated Partial Thromboplast Time 29.1 SEC (24.5-34.5) Lipid panel Test 06/07/24 06:07 Cholesterol Level 74 mg/dL (< 200) HDL Cholesterol < 5 mg/dL (40-59) L Triglycerides Level 199 mg/dL (< 150) H LFT Test 06/07/24 06:07 Alanine Aminotransferase (ALT) 91 U/L (7-40) H Alkaline Phosphatase 160 U/L (46-116) H Aspartate Amino Transferase (AST) 117 U/L (13-40) H Total Bilirubin 0.7 mg/dL (0.2-1.0) HgA1c, TSH Test 06/07/24 06:07 Hemoglobin A1c 11.7 % A1C (<5.7) H Thyroid Stimulating Hormone (TSH) 1.14 uIU/mL (0.55-4.78) Urinalysis Test 06/05/24 22:13 Urine Color Light-yellow (Yellow) Urine Clarity Clear (Clear) Urine pH 5.5 (5.0-9.0) Urine Specific [place] 1.032 (1.001-1.035) Urine Protein Trace (Negative) H Urine Ketones 2+ (Negative) H Urine Blood Trace /uL (Negative) H Urine Nitrite Negative (Negative) Urine Bilirubin Negative (Negative) Urine Urobilinogen Normal mg/dL (Negative) Urine Leukocyte Esterase Negative /uL (Negative) Urine RBC 3 /hpf (0 - 3) Urine WBC 1 /hpf (0 - 3) Urine Squamous Epithelial Cells None seen /hpf (<5) Urine Bacteria None seen /hpf (None Seen) Urine Glucose 4+ mg/dL (Normal) H Microbiology Microbiology Date/Time Source Procedure Growth Status 06/05/24 16:41 Blood Blood Culture - Preliminary Staphylococcus aureus Resulted Assessment/Plan Assessment/Plan Fever Bacteremia G+ cocci in clusters Sepsis Uncontrolled DM, insulin dependent Elevated liver function Thrombocytopenia due to sepsis Protein malnutrition HTN Left hip pain, h/o fused 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 infections in the PLAN: 06/06/24: IV fluids IV antibiotics: Vanco and Zosyn CT L hip CT abd & pelvis Lantus 20 units bid & SS Echo: Rule out endocarditis Full code Discussed with at the bedside 06/07/24: Bacteremia: Staph aureus Continue Vanco + Zosyn CT hip: No acute infection IV fluids Pain control Lantus Plan discussed with: Patient My Orders Orders - AIDEN ROWLAND MD Procedure Category Date Status Time Creatinine LAB 06/08/24 Verified 05:00 Date of Service: Jun 07, 2024 Billing Provider: AIDEN ROWLAND MD Common Visit Codes: NOT BILLABLE AIDEN ROWLAND MD Jun 07, 2024 16:51
[2024-06-08] VITALS (8 sets, daily range): BP systolic 138–155; BP diastolic 66–83; PULSE 74–85; RESP 17–19; TEMP 97.4–99.5; O2SAT 97–98
[2024-06-08 06:41] LABS: Basophils # (auto) 0.1 10 ^3/uL (0-0.2); Basophils % (auto) 0.4 % (0.0-2.0); Eosinophils # (auto) 0.2 10 ^3/uL (0-0.8); Hemoglobin 12.5 g/dL (13.5-17.5); Lymphocytes # (auto) 2.1 10 ^3/uL (0.4-5.4)
[2024-06-08 06:44] LABS: Eosinophils % (auto) 1.8 % (0.0-7.0); Hematocrit 36.4 % (41.0-53.0); Lymphocytes % (auto) 15.3 % (10.0-50.0); Mean Corpuscular Hemoglobin 30.7 pg (28.0-32.0); Mean Corpuscular Hgb Conc. 34.3 g/dL (32.0-36.0); Mean Corpuscular Volume 89.5 fL (80.0-100.0); Monocytes # (auto) 1.1 10 ^3/uL (0-1.3); Monocytes % (auto) 7.8 % (0.0-12.0); Neutrophils # (auto) 10.1 10 ^3/uL (1.6-8.6); Neutrophils % (auto) 74.7 % (37.0-80.0); Nucleated Red Blood Cells % 0.1 %; Platelet Count (auto) 66 10^3/uL (140-450); Red Blood Cells 4.07 10^6/uL (4.5-5.90); Red Cell Distribution Width 13.7 % (11.8-14.3); White Blood Cell 13.5 10^3/uL (4.4-10.8)
[2024-06-08 07:46] LABS: Anion Gap 6 (5-15); BUN/Creatinine Ratio 21.3 (10.0-20.0); Bilirubin, Total 0.7 mg/dL (0.2-1.0); Blood Urea Nitrogen 17 mg/dL (9-23); Carbon Dioxide 23 mmol/L (20-31); Chloride 106 mmol/L (98-107); Magnesium 1.9 mg/dL (1.6-2.6)
[2024-06-08 07:49] LABS: Potassium 3.5 mmol/L (3.5-5.1); Sodium 135 mmol/L (136-145)
[2024-06-08 07:50] LABS: Alanine Aminotransferase 73 U/L (7-40); Albumin 2.1 g/dL (3.2-4.8); Alkaline Phosphatase 149 U/L (46-116); Aspartate Aminotransferase 92 U/L (13-40); Calcium 7.3 mg/dL (8.7-10.4); Glucose 212 mg/dL (74-106); Total Protein 4.9 g/dL (5.7-8.2)
[2024-06-09] VITALS (8 sets, daily range): BP systolic 131–152; BP diastolic 66–83; PULSE 69–89; RESP 16–20; TEMP 98.4–99.3; O2SAT 92–97
[2024-06-09 05:20] LABS: Basophils # (auto) 0 10 ^3/uL (0-0.2); Basophils % (auto) 0.2 % (0.0-2.0); Eosinophils # (auto) 0.2 10 ^3/uL (0-0.8); Eosinophils % (auto) 1.6 % (0.0-7.0); Hematocrit 25.9 % (41.0-53.0); Hemoglobin 8.6 g/dL (13.5-17.5); Lymphocytes # (auto) 1.6 10 ^3/uL (0.4-5.4); Lymphocytes % (auto) 14.8 % (10.0-50.0); Mean Corpuscular Hemoglobin 30.2 pg (28.0-32.0); Mean Corpuscular Hgb Conc. 33.3 g/dL (32.0-36.0); Mean Corpuscular Volume 90.7 fL (80.0-100.0); Monocytes # (auto) 0.9 10 ^3/uL (0-1.3); Neutrophils # (auto) 8.1 10 ^3/uL (1.6-8.6); Neutrophils % (auto) 75.4 % (37.0-80.0); Platelet Count (auto) 78 10^3/uL (140-450); Red Blood Cells 2.85 10^6/uL (4.5-5.90); Red Cell Distribution Width 13.9 % (11.8-14.3); White Blood Cell 10.8 10^3/uL (4.4-10.8)
[2024-06-09] MEDS: VANCOMYCIN 1GM/250ML KIT 250 ML IV SCH (11:10)
[2024-06-10] VITALS (9 sets, daily range): BP systolic 120–160; BP diastolic 57–86; PULSE 69–94; RESP 16–20; TEMP 98.3–99.2; O2SAT 96–99
[2024-06-10 08:01] LABS: Anion Gap 10 (5-15); BUN/Creatinine Ratio 23.4 (10.0-20.0); Bilirubin, Total 0.5 mg/dL (0.2-1.0); Carbon Dioxide 21 mmol/L (20-31); Chloride 105 mmol/L (98-107); Magnesium 2.1 mg/dL (1.6-2.6)
[2024-06-10 08:03] LABS: Basophils # (auto) 0.1 10 ^3/uL (0-0.2); Eosinophils # (auto) 0.2 10 ^3/uL (0-0.8); Eosinophils % (auto) 1.5 % (0.0-7.0); Hematocrit 28.4 % (41.0-53.0); Hemoglobin 9.7 g/dL (13.5-17.5); Lymphocytes # (auto) 1.6 10 ^3/uL (0.4-5.4); Lymphocytes % (auto) 13.3 % (10.0-50.0); Mean Corpuscular Hemoglobin 30.4 pg (28.0-32.0); Mean Corpuscular Hgb Conc. 34.2 g/dL (32.0-36.0); Mean Corpuscular Volume 88.8 fL (80.0-100.0); Monocytes # (auto) 0.9 10 ^3/uL (0-1.3); Monocytes % (auto) 7.2 % (0.0-12.0); Neutrophils # (auto) 9.2 10 ^3/uL (1.6-8.6); Platelet Count (auto) 162 10^3/uL (140-450); Red Cell Distribution Width 13.7 % (11.8-14.3); White Blood Cell 11.9 10^3/uL (4.4-10.8)
[2024-06-10 08:07] LABS: Alanine Aminotransferase 61 U/L (7-40); Albumin 1.8 g/dL (3.2-4.8); Alkaline Phosphatase 126 U/L (46-116); Aspartate Aminotransferase 70 U/L (13-40); Blood Urea Nitrogen 41 mg/dL (9-23); Calcium 7.3 mg/dL (8.7-10.4); Glucose 210 mg/dL (74-106); Potassium 3.3 mmol/L (3.5-5.1); Sodium 136 mmol/L (136-145); Total Protein 5.4 g/dL (5.7-8.2)
--- NOTE | 2024-06-10 08:26 | DVHPN2 ---
Subjective Feels better No fever No more nose bleed Changes from previous H/P or p: Changes General: Chills Eyes: No Pain, No Vision change, No Conjunctivae inflammation, No Eyelid inflammation, No Other, No Redness ENT: No Ear pain, No Ear discharge, No Nose pain, No Nose discharge, No Nose congestion, No Mouth pain, No Mouth swelling, No Throat pain, No Throat swelling, No Other Cardiovascular: No Chest Pain, No Palpitations, No Orthopnea, No Paroxysmal Noc. Dyspnea, No Edema, No Lt Headedness, No Other Respiratory: No Cough, No Dry, No Shortness of breath, No SOB with excertion, No Wheezing, No Hemoptysis, No Pleuritic Pain, No Sputum, No Other Gastrointestinal: No Nausea, No Vomiting, No Abdominal Pain, No Diarrhea, No Constipation, No Melena, No Hematochezia, No Other Genitourinary: No Dysuria, No Frequency, No Incontinence, No Hematuria, No Retention, No Other Musculoskeletal: No other, No neck pain, No shoulder pain, No arm pain, No back pain, No hand pain, No leg pain, No foot pain Skin: No Rash, No Lesions, No Jaundice, No Bruising, No Other Objective Vitals Vital Signs Date Time Temp Pulse Resp B/P (MAP) Pulse Ox O2 Delivery O2 Flow Rate FiO2 06/10/24 07:30 Room Air* 0 21 06/10/24 05:00 99.2 84 18 153/65 (94) 99 99.2 Intake/Output Intake and Output 06/10/24 07:00 Intake Total 2960 ml Output Total 1825 ml Balance 1135 ml Intake Oral 1600 ml IV Total 1360 ml Output Urine Total 1825 ml # Bowel Movements 2 General Appearance: Alert, Oriented X3, Cooperative, No acute distress Lungs: Clear to auscultation, Normal air movement Cardiovascular: Regular rate, Normal S1, Normal S2 Abdomen: Normal bowel sounds, Soft, No tenderness Extremities: No edema Medications Current Medications Medications Dose Ordered Sig/Radha Route Start Time Stop Time Status Last Admin Dose Admin Dextrose 50 ml UD PRN IV 06/05/24 19:45 Acetaminophen/ Hydrocodone Bitart 1 tab Q4HP PRN PO 06/05/24 19:45 06/10/24 06:32 1 TAB Ondansetron HCl 4 mg Q4HP PRN IV 06/05/24 19:45 Docusate Sodium 100 mg BIDPRN PRN PO 06/05/24 19:45 Hydralazine HCl 10 mg Q6HP PRN IV 06/05/24 19:45 Nitroglycerin 0.4 mg Q5MINP PRN SL 06/05/24 22:30 Morphine Sulfate 2 mg Q30M PRN IV 06/05/24 22:30 Insulin Glargine 20 units BID@1000,2200 SC 06/06/24 22:00 06/09/24 22:22 20 UNITS Diagnostic Test (Pha) 1 strip ACHS 06/06/24 17:00 06/10/24 06:31 1 STRIP Insulin Human Regular ACHS SC 06/06/24 17:00 06/10/24 06:40 2 UNITS Acetaminophen 650 mg Q6HP PRN PO 06/06/24 16:00 06/09/24 06:28 650 MG Sodium Chloride 1,000 ml @ 100 mls/hr Q10H IV 06/10/24 08:30 UNV Laboratory Results Laboratory Tests 06/10/24 02:02 Chemistry Test 06/10/24 02:02 Albumin 1.8 g/dL (3.2-4.8) L Calcium Level 7.3 mg/dL (8.7-10.4) L Magnesium Level 2.1 mg/dL (1.6-2.6) Total Protein 5.4 g/dL (5.7-8.2) L LFT Test 06/10/24 02:02 Alanine Aminotransferase (ALT) 61 U/L (7-40) H Alkaline Phosphatase 126 U/L (46-116) H Aspartate Amino Transferase (AST) 70 U/L (13-40) H Total Bilirubin 0.5 mg/dL (0.2-1.0) Urinalysis Test 06/05/24 22:13 Urine Color Light-yellow (Yellow) Urine Clarity Clear (Clear) Urine pH 5.5 (5.0-9.0) Urine Specific [place] 1.032 (1.001-1.035) Urine Protein Trace (Negative) H Urine Ketones 2+ (Negative) H Urine Blood Trace /uL (Negative) H Urine Nitrite Negative (Negative) Urine Bilirubin Negative (Negative) Urine Urobilinogen Normal mg/dL (Negative) Urine Leukocyte Esterase Negative /uL (Negative) Urine RBC 3 /hpf (0 - 3) Urine WBC 1 /hpf (0 - 3) Urine Squamous Epithelial Cells None seen /hpf (<5) Urine Bacteria None seen /hpf (None Seen) Urine Glucose 4+ mg/dL (Normal) H Microbiology Microbiology Date/Time Source Procedure Growth Status 06/05/24 16:41 Blood Blood Culture - Preliminary Staphylococcus aureus Resulted Assessment/Plan Assessment/Plan Fever Bacteremia G+ cocci in clusters Sepsis Uncontrolled DM, insulin dependent Elevated liver function Thrombocytopenia due to sepsis Protein malnutrition HTN Left hip pain, h/o fused 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 infections in the PLAN: 06/06/24: IV fluids IV antibiotics: Vanco and Zosyn CT L hip CT abd & pelvis Lantus 20 units bid & SS Echo: Rule out endocarditis Full code Discussed with at the bedside 06/07/24: Bacteremia: Staph aureus Continue Vanco + Zosyn CT hip: No acute infection IV fluids Pain control Lantus 06/09/24: JASON: Increase IV fluids, bolus NS Hypokalemia: Replace DC Leon Weakness: PT, home health, order FWW and commode Fever: Improved Sepsis: Better Thrombocytopenia: Better Epistaxis probably 2nd to Thrombocytopenia: Resolved Bacteremia with Staph aureus: Change Zosyn and Vanco to Cefazolin DM: Lantus DC planning for tomorrow Plan discussed with: Patient My Orders Orders - AIDEN ROWLAND MD Procedure Category Date Status Time Pt Request For Service PT 06/09/24 Logged 09:38 Vancomycin Per PATSY 06/10/24 In Process Pharmacy Protoc 03:00 D/C Leon PATSY 06/10/24 In Process 08:16 Sodium Chloride 0.9% PHA 06/10/24 Logged 08:30 Sodium Chloride 0.9% PHA 06/10/24 Logged 08:30 * Consumer Electronic [employer]ist CONS 06/10/24 Transmitted Consult Potassium Er Tablet PHA 06/10/24 Verified (Klor-Con Tablet) 08:30 Date of Service: Jun 10, 2024 Billing Provider: AIDEN ROWLAND MD Common Visit Codes: NOT BILLABLE AIDEN ROWLAND MD Jun 10, 2024 08:26
[2024-06-10] MEDS: SODIUM CHLORIDE 0.9% 1,000 ML IV SCH (08:30)
[2024-06-10] MEDS: SODIUM CHLORIDE 0.9% 500 ML IV ONE (09:20)
[2024-06-10] MEDS: POTASSIUM CHL 20 Meq TABLET PO ONE (09:55)
[2024-06-10] MEDS: ceFAZolin 1GM/50ML 50 ML IV SCH (15:20)
[2024-06-10] MEDS: MELATONIN 5 MG TAB PO PRN (23:53)
[2024-06-11 01:00] VITALS: BP_SYST 100; BP_SYST 106; BP_DIAS 67; BP_DIAS 69; PULSE 80; RESP 18; TEMP 98.7; O2SAT 95; O2SAT 98
[2024-06-11 05:00] VITALS: BP 141/72; PULSE 75; RESP 18; TEMP 98.8; O2SAT 98
[2024-06-11 07:45] LABS: Basophils # (auto) 0 10 ^3/uL (0-0.2); Basophils % (auto) 0.3 % (0.0-2.0); Eosinophils # (auto) 0.2 10 ^3/uL (0-0.8); Eosinophils % (auto) 1.4 % (0.0-7.0); Hematocrit 26.2 % (41.0-53.0); Hemoglobin 8.8 g/dL (13.5-17.5); Lymphocytes # (auto) 1.5 10 ^3/uL (0.4-5.4); Lymphocytes % (auto) 13.4 % (10.0-50.0); Mean Corpuscular Hemoglobin 30.2 pg (28.0-32.0); Mean Corpuscular Hgb Conc. 33.6 g/dL (32.0-36.0); Mean Corpuscular Volume 89.7 fL (80.0-100.0); Monocytes # (auto) 0.9 10 ^3/uL (0-1.3); Monocytes % (auto) 7.8 % (0.0-12.0); Neutrophils # (auto) 8.7 10 ^3/uL (1.6-8.6); Neutrophils % (auto) 77.1 % (37.0-80.0); Platelet Count (auto) 228 10^3/uL (140-450); Red Blood Cells 2.92 10^6/uL (4.5-5.90); Red Cell Distribution Width 13.6 % (11.8-14.3); White Blood Cell 11.2 10^3/uL (4.4-10.8)
[2024-06-11 08:00] VITALS: PULSE 86
[2024-06-11 08:13] LABS: Anion Gap 5 (5-15); BUN/Creatinine Ratio 19.6 (10.0-20.0); Bilirubin, Total 0.7 mg/dL (0.2-1.0); Carbon Dioxide 23 mmol/L (20-31); Magnesium 2.3 mg/dL (1.6-2.6); Sodium 138 mmol/L (136-145)
[2024-06-11 08:14] LABS: Total Protein 6.6 g/dL (5.7-8.2)
[2024-06-11 08:17] LABS: Alanine Aminotransferase 59 U/L (7-40); Albumin 2.3 g/dL (3.2-4.8); Alkaline Phosphatase 135 U/L (46-116); Aspartate Aminotransferase 70 U/L (13-40); Blood Urea Nitrogen 29 mg/dL (9-23); Calcium 7.4 mg/dL (8.7-10.4); Chloride 110 mmol/L (98-107); Glucose 112 mg/dL (74-106); Potassium 3.1 mmol/L (3.5-5.1)
[2024-06-11 09:00] VITALS: BP 149/71; PULSE 85; RESP 18; TEMP 98.9; O2SAT 98
[2024-06-11] MEDS ORDERED: METHADONE HCL 10 MG TAB PO SCH (12:00)
[2024-06-11] MEDS: POTASSIUM CHL 20 Meq TABLET PO ONE (12:01)
[2024-06-11] MEDS ORDERED: LEVO500T91 PO (12:04)
[2024-06-11] MEDS: METHADONE HCL 10 MG TAB PO SCH (12:05)
--- NOTE | 2024-06-11 12:08 | DVHDS2 ---
Discharge Summary Date of Admission Jun 05, 2024 at 22:17 Date of Discharge: Jun 11, 2024 Labs/Diagnostic Data: Laboratory Results Test 06/11/24 11:27 06/11/24 06:11 06/10/24 02:02 06/07/24 06:07 POC Glucose 174 mg/dl (70-106) White Blood Count 11.2 10^3/uL (4.4-10.8) Red Blood Count 2.92 10^6/uL (4.5-5.90) Hemoglobin 8.8 g/dL (13.5-17.5) Hematocrit 26.2 % (41.0-53.0) Mean Corpuscular Volume 89.7 fL (80.0-100.0) Mean Corpuscular Hemoglobin 30.2 pg (28.0-32.0) Mean Corpuscular Hemoglobin Concent 33.6 g/dL (32.0-36.0) Red Cell Distribution Width 13.6 % (11.8-14.3) Platelet Count 228 10^3/uL (140-450) Mean Platelet Volume 8.6 fL (6.9-10.8) Neutrophils (%) (Auto) 77.1 % (37.0-80.0) Lymphocytes (%) (Auto) 13.4 % (10.0-50.0) Monocytes (%) (Auto) 7.8 % (0.0-12.0) Eosinophils (%) (Auto) 1.4 % (0.0-7.0) Basophils (%) (Auto) 0.3 % (0.0-2.0) Neutrophils # (Auto) 8.7 10 ^3/uL (1.6-8.6) Lymphocytes # (Auto) 1.5 10 ^3/uL (0.4-5.4) Monocytes # (Auto) 0.9 10 ^3/uL (0-1.3) Eosinophils # (Auto) 0.2 10 ^3/uL (0-0.8) Basophils # (Auto) 0 10 ^3/uL (0-0.2) Nucleated Red Blood Cells 0.0 % Sodium Level 138 mmol/L (136-145) Potassium Level 3.1 mmol/L (3.5-5.1) Chloride Level 110 mmol/L (98-107) Carbon Dioxide Level 23 mmol/L (20-31) Anion Gap 5 (5-15) Blood Urea Nitrogen 29 mg/dL (9-23) Creatinine 1.48 mg/dL (0.700-1.30) Glomerular Filtration Rate Calc 52 mL/min (>90) BUN/Creatinine Ratio 19.6 (10.0-20.0) Serum Glucose 112 mg/dL (74-106) Calcium Level 7.4 mg/dL (8.7-10.4) Magnesium Level 2.3 mg/dL (1.6-2.6) Total Bilirubin 0.7 mg/dL (0.2-1.0) Aspartate Amino Transferase (AST) 70 U/L (13-40) Alanine Aminotransferase (ALT) 59 U/L (7-40) Alkaline Phosphatase 135 U/L (46-116) Total Protein 6.6 g/dL (5.7-8.2) Albumin 2.3 g/dL (3.2-4.8) Vancomycin Level Trough 30.2 ug/mL (5-10) Differential Total Cells Counted 100.0 (100) Neutrophils % (Manual) 73 (37.0-80.0) Band Neutrophils % (Manual) 9 Lymphocytes % (Manual) 10 (10.0-50.0) Monocytes % (Manual) 7 (0-12) Eosinophils % (Manual) 1 (0-7) Basophils % (Manual) 0 (0.0-2.0) Metamyelocytes % (manual) 0 Myelocytes % (Manual) 0 Promyelocytes % (Manual) 0 Blast Cells % (Manual) 0 Reactive Lymphocytes 0 Platelet Estimate Decreased Prothrombin Time 11.4 sec (9.3-11.8) Prothrombin Time INR 1.08 (0.9-1.15) Activated Partial Thromboplast Time 29.1 SEC (24.5-34.5) Hemoglobin A1c 11.7 % A1C (<5.7) Triglycerides Level 199 mg/dL (< 150) Cholesterol Level 74 mg/dL (< 200) LDL Cholesterol 20 mg/dL (< 100) HDL Cholesterol < 5 mg/dL (40-59) Thyroid Stimulating Hormone (TSH) 1.14 uIU/mL (0.55-4.78) Test 06/06/24 16:39 06/06/24 01:57 06/05/24 23:23 06/05/24 22:13 Hepatitis A IgM Antibody Negative Hepatitis B Surface Antigen Negative (Negative) Hepatitis B Core IgM Antibody Negative (Negative) Hepatitis C Antibody Negative (Negative) Lactic Acid Level 2.0 mmol/L (0.4-2.0) Influenza Type A Antigen Negative (Negative) Influenza Type B Antigen Negative (Negative) SARS-CoV-2 Antigen (Rapid) Negative (NEGATIVE) Urine Color Light-yellow (Yellow) Urine Clarity Clear (Clear) Urine pH 5.5 (5.0-9.0) Urine Specific [place] 1.032 (1.001-1.035) Urine Protein Trace (Negative) Urine Ketones 2+ (Negative) Urine Blood Trace /uL (Negative) Urine Nitrite Negative (Negative) Urine Bilirubin Negative (Negative) Urine Urobilinogen Normal mg/dL (Negative) Urine Leukocyte Esterase Negative /uL (Negative) Urine RBC 3 /hpf (0 - 3) Urine WBC 1 /hpf (0 - 3) Urine Squamous Epithelial Cells None seen /hpf (<5) Urine Bacteria None seen /hpf (None Seen) Urine Glucose 4+ mg/dL (Normal) Test 06/05/24 18:13 Troponin I High Sensitivity 3 ng/L (</=54) Other Laboratory Tests 06/11/24 06:11 Brief Hx & Hospital Course: Final diagnoses: Fever due to community-acquired pneumonia Bacteremia with Staphylococcus aureus due to pneumonia Sepsis due to bacteremia and community-acquired pneumonia Uncontrolled DM, insulin dependent Elevated liver function Thrombocytopenia due to sepsis Protein malnutrition HTN Left hip pain, h/o fused 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 infections in the 1980s Hypokalemia Acute kidney injury 64-year-old male who was admitted for fever was found to have bacteremia and pneumonia The blood culture came back Staphylococcus aureus sensitive to most antibiotics He was given IV antibiotics until his fever resolved Physical therapy evaluate the patient and he did okay CT scan of the left hip and the abdomen and pelvis showed no focus of infection The patient overall is doing well and therefore he will be discharged home on Levaquin 500 mg daily for 7 days to finish the treatment for the bacteremia and pneumonia He has acute kidney injury was treated with IV antibiotics and it is improving The patient feels better and wishes to go home Follow up with his primary care physician as soon as possible and resume the same home medication Condition at Discharge: Stable Final Diagnosis/Problems List Fever due to community-acquired pneumonia Bacteremia with Staphylococcus aureus due to pneumonia Sepsis due to bacteremia and community-acquired pneumonia Uncontrolled DM, insulin dependent Elevated liver function Thrombocytopenia due to sepsis Protein malnutrition HTN Left hip pain, h/o fused 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 infections in the 1980s Discharge Disposition: Home SNF Discharge Will this Physician continue t: No Discharge Statement: "Patient was advised to return to the ER or call 911 if any headaches, dizziness, shortness of breath, chest pain, abdominal pain, bleeding, fevers, or worsening of medical condition. Patient was counseled about treatment plan, medications, possible side effects, patientverbalized understanding. All questions were answered to the best of my ability. This discharge took greater then 30 minutes in planning, reviewing documentation, counseling the patient, and discussing with other team members." ASSESSMENT ASSESSMENT Assessment Date of Service: Jun 11, 2024 Billing Provider: AIDEN ROWLAND MD Common Visit Codes: NOT BILLABLE AIDEN ROWLAND MD Jun 11, 2024 12:08
[2024-06-11 13:00] VITALS: BP 149/80; PULSE 85; RESP 18; TEMP 98; O2SAT 94
[2024-06-11 14:21] VITALS: TEMP 36.7
[2024-06-11] MEDS ORDERED: MELATONIN 5 MG TAB PO SCH (22:00)
== END 2024-06-11 15:00 | disposition home health service (06) | DRG 871 ==
LOC: ER 16:00 → EDBD 16:00 → TELE 22:17 → TELE-WESTW 06-06 18:46
PROVIDERS: ADMIT Nurse Practitioner Family; ATTEND Internal Medicine Geriatric Medicine
DX: A41.01 Sepsis due to Methicillin susceptible Staphylococcus aureus (principal); G93.41 Metabolic encephalopathy; J15.211 Pneumonia due to Methicillin susceptible Staphylococcus aureus; N17.0 Acute kidney failure with tubular necrosis; E46 Unspecified protein-calorie malnutrition; D69.59 Other secondary thrombocytopenia; E11.65 Type 2 diabetes mellitus with hyperglycemia; I10 Essential (primary) hypertension; Z79.4 Long term (current) use of insulin; Z68.26 Body mass index [BMI] 26.0-26.9, adult; Z79.899 Other long term (current) drug therapy
CPT/HCPCS: 36415; 71045; 73700; 74176; 80053; 80061; 80074; 80202; 81001; 82565; 82962; 83036; 83605; 83735; 84443; 84484; 85007; 85025; 85027; 85610; 85730; 87040; 87077; 87186; 87426; 87804; 93306; 97163; 99291; G0378; J0692; J1815; J2405; J2543